=== PATIENT | male | born 1975 | race Caucasian/White ===

== ENCOUNTER 2019-04-09 05:54 | Day surgery (SDC) | payer OTHER | END 2019-04-09 13:45 | disposition home or self-care (01) | LOC: CIR.AMB 05:54 | DX: M65.841 Other synovitis and tenosynovitis, right hand (principal) ==

== ENCOUNTER 2020-06-19 18:31 | Inpatient (IN) | payer OTHER ==
[~2020-06-19] VITALS: Ht 172.7 cm; Wt 81.6 kg
--- NOTE | 2020-06-19 19:11 | NUR ---
PTE SE RECIBE POR ABDOMINAL PAIN TERRI REFIERE PTE.
--- NOTE | 2020-06-19 20:37 | NUR ---
PACIENTE ALERTA Y ORIENTADO X3. MANEJADO POR MISS. POSEY QUIEN ORIENTA A PACIENTE SOBRE TX Y PROCEDIMIENTO A REALIZAR Y REFIERE ENTENDER. REALIZA MUESTRAS DE LABORATORIO BAJO MEDIDAS ASEPTICAS. CANALIZACION PATENTE Y DOMINGO DE EDEMA Y ERITEMA. PENDIENTE SONOGRAMA ABDOMINAL. PENDIENTE ADMINISTRAR MEDICAMENTOS LUEGO DE REALIZACION SONOGRAMA ABDOMINAL.
--- NOTE | 2020-06-19 22:50 | NUR ---
MR. GUZMÁN INSERTA SONDA URINARIA BAJO MEDIDAS ASEPTICAS Y ESTERILES.
== END 2020-06-27 13:40 | disposition home or self-care (01) | DRG 419 ==
LOC: ER 18:31 → SURG 06-20 10:36
PROVIDERS: ADMIT Surgery; ATTEND Surgery
PROC: 0FT44ZZ Resection of Gallbladder, Percutaneous Endoscopic Approach (ICD-10-PCS; principal; 2020-06-21 16:15)
DX: K80.00 Calculus of gallbladder with acute cholecystitis without obstruction (principal); K82.A1 Gangrene of gallbladder in cholecystitis; Z20.828 Contact with and (suspected) exposure to other viral communicable diseases; D64.89 Other specified anemias

== ENCOUNTER 2020-07-21 08:22 | Outpatient (CLI) | payer OTHER | END 2020-07-21 08:37 | disposition home or self-care (01) | LOC: NUCLEAR 08:22 | PROVIDERS: ATTEND Surgery | DX: K81.1 Chronic cholecystitis (principal) | CPT/HCPCS: 78227; A9537; J2805 ==

== ENCOUNTER 2020-07-30 15:23 | Inpatient (IN) | payer OTHER ==
[~2020-07-30] VITALS: Ht 172.7 cm; Wt 80.3 kg
== END 2020-08-01 14:28 | disposition home or self-care (01) | DRG 373 ==
LOC: ER 15:23 → SURG 18:02
PROVIDERS: ADMIT Surgery; ATTEND Surgery
PROC: BW21ZZZ Computerized Tomography (CT Scan) of Abdomen and Pelvis (ICD-10-PCS; principal; 2020-07-30)
PROC: 0W9G30Z Drainage of Peritoneal Cavity with Drainage Device, Percutaneous Approach (ICD-10-PCS; 2020-07-30)
DX: K65.1 Peritoneal abscess (principal); K66.8 Other specified disorders of peritoneum; R33.9 Retention of urine, unspecified; Z20.828 Contact with and (suspected) exposure to other viral communicable diseases